=== PATIENT | female | born 1990 | race Caucasian/White ===

== ENCOUNTER 2019-06-26 13:57 | Emergency (ER) | payer MEDICAID ==
[~2019-06-26] VITALS: Ht 154.9 cm; Wt 104.5 kg
[~2019-06-26 13:57] MED LIST: ESCI20TA29 PO; TRAM50TA2 PO
[2019-06-26 14:40] VITALS: BP 106/47
[2019-06-26] MEDS ORDERED: PENI500T2 PO (14:53)
[2019-06-26] MEDS ORDERED: HYDR-3965 PO (14:53)
== END 2019-06-26 15:09 | disposition home or self-care (01) ==
LOC: ER 13:57
DX: K02.9 Dental caries, unspecified (principal); J45.909 Unspecified asthma, uncomplicated; E11.9 Type 2 diabetes mellitus without complications; F12.90 Cannabis use, unspecified, uncomplicated; Z72.89 Other problems related to lifestyle; Z88.8 Allergy status to other drugs, medicaments and biological substances; Z79.899 Other long term (current) drug therapy
CPT/HCPCS: 99283

== ENCOUNTER 2019-06-30 09:01 | Emergency (ER) | payer MEDICAID ==
[~2019-06-30] VITALS: Ht 157.5 cm; Wt 94.1 kg
[~2019-06-30 09:01] MED LIST changes: +HYDR-3965 PO; +PENI500T2 PO
[2019-06-30] MEDS ORDERED: ondansetron/PF 4mg/2ml inj IV ONE (09:45)
[2019-06-30] MEDS ORDERED: LORazepam 2 mg/ml vial IV ONE (09:45)
[2019-06-30] MEDS ORDERED: pantoprazole 40 MG vial IV ONE (09:45)
[2019-06-30] MEDS ORDERED: normal saline 1000ML IV soln IVB ONE (09:45)
[2019-06-30 10:10] LABS: BASOPHILS % (AUTO) 0.3 % (0-1); EOSINOPHILS % (AUTO) 0.1 % (0-6); HEMATOCRIT 42.1 % (35.0-45.0); LYMPHOCYTES # (AUTO) 0.9 X10'3 (1.1-4.8); MEAN CORPUSCULAR HGB CONC 33.3 g/dL (33.0-36.5); MEAN CORPUSCULAR VOLUME 90.1 FL (78-98); MONOCYTES # (AUTO) 0.6 X10'3 (0-0.9); MONOCYTES % (AUTO) 5.2 % (2-12); NEUTROPHILS # (AUTO) 10.2 X10'3 (1.8-7.7); NEUTROPHILS % (AUTO) 86.4 % (42-75); PLATELET COUNT 382 X10'3 (140-440); RED BLOOD COUNT 4.68 X10'6 (4.20-5.60); RED CELL DISTRIBUTION WIDTH 13.8 % (11.5-14.5); WHITE BLOOD COUNT 11.7 X10'3 (4.5-11.0)
[2019-06-30 10:22] LABS: ALANINE AMINOTRANSFERASE 96 U/L (12-78); ALBUMIN 4.7 G/DL (3.4-5.0); ALBUMIN/GLOBULIN RATIO 1.4 (1.1-1.5); ALKALINE PHOSPHATASE 63 IU/L (46-116); ANION GAP 11 (8-16); ASPARTATE AMINO TRANSFERASE 80 U/L (10-37); BILIRUBIN,TOTAL 0.6 MG/DL (0.1-1.0); BLOOD UREA NITROGEN 15 MG/DL (7-18); BUN/CREATININE RATIO 12.5 (6.6-38.0); CALCIUM 9.7 MG/DL (8.5-10.1); CHLORIDE 106 MMOL/L (99-107); GLUCOSE 128 MG/DL (70-104); LIPASE 78 U/L (73-393); POTASSIUM 3.2 MMOL/L (3.5-5.1); SODIUM 140 MMOL/L (135-145); TOTAL CARBON DIOXIDE 22.7 MMOL/L (24-32); eGFR 53 ML/MIN
[2019-06-30 10:27] LABS: HCG SERUM QL NEGATIVE
--- NOTE | 2019-06-30 10:28 | NUR ---
pt sitting up in bed talking on phone ,pt looked lot better than before,relieved anxitey.pt smiled and said "i am feeling better.thank you."vitals stable will cont to monitor.
[2019-06-30 10:38] VITALS: BP 140/88
--- NOTE | 2019-06-30 10:45 | NUR ---
DR RUDOLPH CAME TO REASSESS THE PT ,PTBREATHING SLOWER DOWN,ANXITEY RELIEVED ,PT C/O IV BURNING INFORMED ONCE IV FLUID IS FINISHED WILL REMOVE THE IV DR RUDOLPH AGREED,PT DENIES ANY CONCERN ,WILL CONT TO MONITOR. PER MD WILL DISCHARGE THE PT IN 20 MINS.
--- NOTE | 2019-06-30 11:08 | NUR ---
NOTIFIED DR RUDOLPH THAT PT IS SLEEPING QUIETLY IN HER BED ,RESPIATION 16 AT THIS TIME ,NO HYPERVENTILATION,DR RUDOLPH SAID SHE WILL DISCH PT IN FEW MINS.
== END 2019-06-30 11:59 | disposition home or self-care (01) ==
LOC: ER 09:02
DX: F41.0 Panic disorder [episodic paroxysmal anxiety] (principal); R11.10 Vomiting, unspecified; J45.909 Unspecified asthma, uncomplicated; E11.9 Type 2 diabetes mellitus without complications; F41.9 Anxiety disorder, unspecified; F17.200 Nicotine dependence, unspecified, uncomplicated; F12.90 Cannabis use, unspecified, uncomplicated; Z72.89 Other problems related to lifestyle; Z88.0 Allergy status to penicillin; Z88.8 Allergy status to other drugs, medicaments and biological substances; Z79.2 Long term (current) use of antibiotics; Z79.899 Other long term (current) drug therapy
CPT/HCPCS: 36415; 80053; 83690; 84703; 85025; 93005; 96361; 96374; 96375; 99284; C9113; J2060; J2405; J7030

== ENCOUNTER 2020-03-26 07:57 | Emergency (ER) | payer MEDICAID ==
[~2020-03-26] VITALS: Ht 157.5 cm; Wt 104.5 kg
[~2020-03-26 07:57] MED LIST changes: -HYDR-3965 PO; -PENI500T2 PO
[2020-03-26 08:03] VITALS: BP 138/74
[2020-03-26] MEDS ORDERED: normal saline 1000ML IV soln IVB ONE (08:15)
[2020-03-26] MEDS ORDERED: ondansetron/PF 4mg/2ml inj IV ONE (08:15)
[2020-03-26] MEDS ORDERED: morphine 4 MG/ML inj SYRINge IV ONE (08:15)
[2020-03-26 09:02] LABS: BASOPHILS # (AUTO) 0.1 X10'3 (0-0.2); BASOPHILS % (AUTO) 0.6 % (0-1); EOSINOPHILS # (AUTO) 0.1 X10'3 (0-0.9); EOSINOPHILS % (AUTO) 1.7 % (0-6); HEMATOCRIT 39.3 % (35.0-45.0); HEMOGLOBIN 13.2 g/dl (12.0-16.0); LYMPHOCYTES # (AUTO) 2.3 X10'3 (1.1-4.8); MEAN CORPUSCULAR HEMOGLOBIN 30.4 PG (27.0-31.0); MEAN CORPUSCULAR HGB CONC 33.6 g/dL (33.0-36.5); MEAN CORPUSCULAR VOLUME 90.3 FL (78-98); MEAN PLATELET VOLUME 9.3 FL (7.4-10.4); MONOCYTES # (AUTO) 0.6 X10'3 (0-0.9); MONOCYTES % (AUTO) 7.3 % (2-12); NEUTROPHILS # (AUTO) 5.3 X10'3 (1.8-7.7); NEUTROPHILS % (AUTO) 63.4 % (42-75); PLATELET COUNT 284 X10'3 (140-440); RED BLOOD COUNT 4.35 X10'6 (4.20-5.60); RED CELL DISTRIBUTION WIDTH 14.9 % (11.5-14.5); WHITE BLOOD COUNT 8.4 X10'3 (4.5-11.0)
[2020-03-26 09:14] LABS: ALANINE AMINOTRANSFERASE 25 U/L (12-78); ALBUMIN 3.4 G/DL (3.4-5.0); ALKALINE PHOSPHATASE 66 IU/L (46-116); ANION GAP 9 (8-16); ASPARTATE AMINO TRANSFERASE 18 U/L (10-37); BILIRUBIN,TOTAL 0.4 MG/DL (0.1-1.0); BLOOD UREA NITROGEN 13 MG/DL (7-18); CALCIUM 9.1 MG/DL (8.5-10.1); CHLORIDE 104 MMOL/L (99-107); GLUCOSE 99 MG/DL (70-104); LIPASE 115 U/L (73-393); POTASSIUM 3.6 MMOL/L (3.5-5.1); SODIUM 140 MMOL/L (135-145); TOTAL CARBON DIOXIDE 27.2 MMOL/L (24-32); TOTAL PROTEIN 6.8 G/DL (6.4-8.2)
[2020-03-26 09:15] LABS: BUN/CREATININE RATIO 13.7 (6.6-38.0); CREATININE 0.95 MG/DL (0.40-0.90); eGFR 70 ML/MIN
[2020-03-26] MEDS ORDERED: DICY10CA88 PO (09:52)
== END 2020-03-26 10:31 | disposition home or self-care (01) ==
LOC: ER 07:57
DX: R10.11 Right upper quadrant pain (principal); R11.0 Nausea; J45.909 Unspecified asthma, uncomplicated; E11.9 Type 2 diabetes mellitus without complications; F12.90 Cannabis use, unspecified, uncomplicated; Z88.0 Allergy status to penicillin; Z88.8 Allergy status to other drugs, medicaments and biological substances; Z79.899 Other long term (current) drug therapy
CPT/HCPCS: 36415; 76700; 80053; 83690; 85025; 96361; 96365; 96375; 99284; J2270; J2405; J7030

== ENCOUNTER 2020-07-06 21:56 | Emergency (ER) | payer MEDICAID ==
[~2020-07-06] VITALS: Ht 157.5 cm; Wt 85.9 kg
[~2020-07-06 21:56] MED LIST changes: +DICY10CA88 PO
[2020-07-06 22:01] VITALS: BP 128/79
== END 2020-07-07 01:12 | disposition left against medical advice (07) ==
LOC: ER 21:57
DX: J34.89 Other specified disorders of nose and nasal sinuses (principal); Z53.21 Procedure and treatment not carried out due to patient leaving prior to being seen by health care provider

== ENCOUNTER 2023-09-10 17:17 | Emergency (ER) | payer MEDICAID ==
[~2023-09-10] VITALS: Ht 154.9 cm; Wt 100.7 kg
[~2023-09-10 17:17] MED LIST changes: +NITR100C6 PO
[2023-09-10 17:24] VITALS: BP 128/92; PULSE 125; RESP 16; O2SAT 97
[2023-09-10] MEDS: epiNEPHrine 1 mg/ml inj IM STA (17:56)
[2023-09-10] MEDS: diphenhydrAMINE 50 mg/ml inj IM ONE (17:56)
[2023-09-10] MEDS: diphenhydrAMINE 25mg capsule PO ONE (18:05)
[2023-09-10 18:56] VITALS: TEMP 98.4
== END 2023-09-10 18:58 | disposition home or self-care (01) ==
LOC: ER 17:18
DX: S00.462A Insect bite (nonvenomous) of left ear, initial encounter (principal); T63.441A Toxic effect of venom of bees, accidental (unintentional), initial encounter; T78.2XXA Anaphylactic shock, unspecified, initial encounter; J45.909 Unspecified asthma, uncomplicated; E11.9 Type 2 diabetes mellitus without complications; F41.9 Anxiety disorder, unspecified; F12.90 Cannabis use, unspecified, uncomplicated; Z88.8 Allergy status to other drugs, medicaments and biological substances; Z88.0 Allergy status to penicillin; Z79.899 Other long term (current) drug therapy; X58.XXXA Exposure to other specified factors, initial encounter
CPT/HCPCS: 96372; 99284; J0171; J1200; Q0163